=== PATIENT | female | born 1955 | race Caucasian/White ===

== ENCOUNTER 2017-11-24 15:13 | Observation (INO) ==
[2017-11-24] MEDS ORDERED: GI Cocktail 40 ML EACH PO ONE (15:55)
--- NOTE | 2017-11-24 16:00 | Emergency Department Note ---
Disposition Clinical Impression: Abdominal pain, Elevated LFTs, Bilirubinemia Disposition: Admitted As Inpatient Condition: Fair Instructions: Abdominal Pain (ED) Reasons to Return/Additional Instructions: Please follow-up with your primary care provider for continuation of your care. Return to the emergency department if you develop any worsening of your condition or if you develop new concerning symptoms. Prescriptions: Sucralfate [Carafate] 1 gm PO QIDAC #10 tablet Referrals: Jw Cruz MD [Primary Care Provider] - Forms: ED Satisfaction Letter, Work/School Release Time of Disposition: 17:00 Abdominal Pain HPI - General Chief Complaint: ED Abdominal Pain Stated Complaint: Epigastric pain radiating to back x 4 days Time Seen by Provider: 11/24/17 15:21 Source: patient Mode of arrival: ambulatory Limitations: no limitations Nursing Notes Reviewed: Yes Vital Signs Reviewed: Yes - History of Present Illness HPI Narrative: 62-year-old female presents emergency Department with concerns of epigastric right upper quadrant abdominal pain. Patient states symptoms have been intermittent over the past year. She had a similar episode of severe pain one year ago which she states was diagnosed as biliary obstruction which required ERCP. The procedure was performed at [facility] and she has been following Dr. Duvall since that time. She was evaluated in the emergency department last night at [facility] with laboratory evaluation that was not significantly abnormal. She was given a GI cocktail and she return home. Patient states she had temporary improvement of her pain and she was able to sleep for several hours. However after waking she developed epigastric right upper quadrant pain, she states that anything she eats makes pain worse. Patient denies fever, chills, diarrhea, hematochezia, melena, recent trauma, changes in medications. Pain Scale: 10 - Related Data Home Medications Medication Instructions Recorded Confirmed BuPROPion [Wellbutrin] 150 mg PO DAILY 09/11/16 11/24/17 FLUoxetine HCl [PROzac] 10 mg PO DAILY 11/11/16 11/24/17 Zaleplon [Sonata] 10 mg PO HS 11/11/16 11/24/17 Lisinopril [Zestril] 20 mg PO DAILY 04/11/17 11/24/17 Aspirin [Lo-Dose Aspirin EC] 81 mg PO DAILY 07/20/17 11/24/17 Etodolac [Lodine] 400 mg PO BID 09/01/17 11/24/17 OxyCODONE/APAP 7.5/325 [Percocet 1 each PO BID PRN 09/01/17 11/24/17 7.5/325 MG] Ursodiol 300 mg PO BID 09/01/17 11/24/17 Hyoscyamine SL [Levsin SL] 0.125 mg SL Q4HR 11/24/17 11/24/17 Previous Rx's Medication Instructions Recorded Pantoprazole Sodium [Protonix] 1 tab PO DAILY #30 tablet. 09/01/17 Sucralfate [Carafate] 1 gm PO QIDAC #10 tablet 11/24/17 Allergies Allergy/AdvReac Type Severity Reaction Status Date / Time meperidine [From Demerol] Allergy Hives Verified 11/24/17 03:34 Sulfa (Sulfonamide Allergy Hives Verified 11/24/17 03:34 Antibiotics) All systems ED: reviewed and negative except as stated. Review of Systems: As Per HPI Abdominal Pain PMH - Past Medical History Medical history: Reports: arthritis, GERD, hypertension, other Female Surgical History: Reports: appendectomy, cholecystectomy, hysterectomy, other [employer] history: Reports: no [employer] history Psychiatric history: Reports: anxiety, depression - Social History Smoking status: Never smoker Alcohol use: Reports: none Drug use: Reports: none Physical Exam General: Alert and in no acute distress Skin: Warm, dry, intact Head: Normocephalic and atraumatic Neck: Supple, trachea midline and no tenderness Cardiovascular: RRR, no murmur, normal perfusion Respiratory: CTAB, no wheezing, cough, or respiratory distress Musculoskeletal: Normal strength, no tenderness, swelling or deformity GI: Soft, mild tenderness to palpation of the epigastric and right upper quadrant without evidence of rigidity, guarding, or rebound. Neuro: A&O to person, place, time and situation. No focal deficits noted on exam Psychiatric: cooperative and appropriate mood and affect. - General Limitations: no limitations General appearance: alert, in no apparent distress Course Vital Signs Temperature 97.9 F 11/24/17 15:16 Pulse Rate 80 11/24/17 15:16 Respiratory Rate 16 11/24/17 15:16 Blood Pressure 147/82 11/24/17 15:16 O2 Sat by Pulse Oximetry 98 11/24/17 15:16 Temperature 97.9 F 11/24/17 15:16 Pulse Rate 80 11/24/17 15:16 Respiratory Rate 16 11/24/17 15:16 Blood Pressure 147/82 11/24/17 15:16 O2 Sat by Pulse Oximetry 98 11/24/17 15:16 Oxygen Delivery Oxygen Delivery Room Air Abdominal Pain - MDM Narrative Medical decision making narrative: Patient will be given GI cocktail for control of pain. We will recheck the patient's abdominal labs. Abdomen is soft and without rigidity, she likely does not need a CT of the abdomen unless her labs returned significantly altered. - Medical Records Medical records reviewed: Yes I reviewed the patient's medical records. - Lab Data Lab results reviewed: Yes I reviewed the patient's lab results. Result diagrams: 11/24/17 15:51 11/24/17 15:51 Lab Results 11/24/17 11/24/17 11/24/17 Range/Units 15:51 15:51 15:51 WBC 10.2 (4.3-11.1) K/mcL RBC 4.08 (3.82-4.97) M/mcL Hgb 13.1 (11.5-15.4) g/dL Hct 38.1 (35.3-44.9) % MCV 93.4 (83.0-100.0) fL MCH 32.1 (28.0-33.3) pg MCHC 34.4 (31.6-35.5) g/dL RDW 12.4 (11.5-14.5) % Plt Count 283 (140-400) K/mcL MPV 10.3 (9.4-12.4) fL Immature Gran % 0.4 (0-4) % Seg Neutrophils % 85.0 % Lymphocytes % 6.7 % Monocytes % 5.6 % Eosinophils % 1.9 % Basophils % 0.4 % Neutrophils # 8.7 (1.6-8.9) K/mcL Lymphocytes # 0.7 (0.6-4.6) K/mcL Monocytes # 0.6 (0.0-1.3) K/mcL Eosinophils # 0.2 (0.0-0.6) K/mcL Basophils # 0.0 (0.0-0.2) K/mcL Sodium 138 (136-145) mEq/L Potassium 3.9 (3.5-5.1) mEq/L Chloride 104 (98-107) mEq/L Carbon Dioxide 27 (23-29) mEq/L BUN 24 H (8-23) mg/dL Creatinine 0.90 (0.60-1.20) mg/dL Est GFR ( Amer) > 60 (> 60) Est GFR (Non-Af Amer) > 60 (> 60) BUN/Creatinine Ratio 27 H (6-26) Glucose 115 H (70-105) mg/dL Calculated Osmolality 291 (280-300) Lactic Acid 1.2 (0.5-2.2) mmol/L Calcium 10.0 (8.6-10.3) mg/dL Total Bilirubin 1.8 H (0.3-1.0) mg/dL Direct Bilirubin 0.9 H (0.0-0.2) mg/dL Indirect Bilirubin 0.9 (0.0-1.2) mg/dL AST 141 H (13-39) Units/L ALT 103 H (7-52) Units/L Alkaline Phosphatase 142 H (34-104) Units/L Troponin I < 0.03 (< 0.04) ng/mL Serum Total Protein 6.9 (6.4-8.9) g/dL Albumin 4.1 (3.5-5.7) g/dL Globulin 2.8 (2.4-3.5) g/dL Albumin/Globulin Ratio 1.5 (1.1-2.2) Lipase 46 (11-82) Units/L - Radiology Data Radiology results reviewed: Yes I reviewed the patient's radiology results. - EKG Data EKG attestation: Yes I reviewed and interpreted this EKG. EKG results narrative: ECG - interpreted by ED physician. Rate normal sinus rhythm with rate of 69 without evidence of STEMI or other dysrhythmia.
[2017-11-24 16:20] LABS: Basophils % 0.4 %; Eosinophils # 0.2 K/mcL (0.0-0.6); Eosinophils % 1.9 %; Hematocrit 38.1 % (35.3-44.9); Hemoglobin 13.1 g/dL (11.5-15.4); Immature Granulocytes % 0.4 % (0-4); Lymphocytes # 0.7 K/mcL (0.6-4.6); Lymphocytes % 6.7 %; Mean Corpuscular HGB Conc 34.4 g/dL (31.6-35.5); Mean Corpuscular Hemoglobin 32.1 pg (28.0-33.3); Mean Corpuscular Volume 93.4 fL (83.0-100.0); Mean Platelet Volume 10.3 fL (9.4-12.4); Monocytes # 0.6 K/mcL (0.0-1.3); Monocytes % 5.6 %; Neutrophils # 8.7 K/mcL (1.6-8.9); Platelet Count 283 K/mcL (140-400); Red Blood Count 4.08 M/mcL (3.82-4.97); Red Cell Distribution Width 12.4 % (11.5-14.5)
[2017-11-24 16:29] LABS: Alanine Aminotransferase 103 Units/L (7-52); Albumin 4.1 g/dL (3.5-5.7); Albumin/Globulin Ratio 1.5 (1.1-2.2); Alkaline Phosphatase 142 Units/L (34-104); Aspartate Amino Transferase 141 Units/L (13-39); BUN/Creatinine Ratio 27 (6-26); Bilirubin,Direct 0.9 mg/dL (0.0-0.2); Bilirubin,Indirect 0.9 mg/dL (0.0-1.2); Bilirubin,Total 1.8 mg/dL (0.3-1.0); Blood Urea Nitrogen 24 mg/dL (8-23); Carbon Dioxide 27 mEq/L (23-29); Chloride 104 mEq/L (98-107); Globulin 2.8 g/dL (2.4-3.5); Glucose 115 mg/dL (70-105); Lipase 46 Units/L (11-82); Osmolality,Calculated 291 (280-300); Potassium 3.9 mEq/L (3.5-5.1); Sodium 138 mEq/L (136-145); Total Protein 6.9 g/dL (6.4-8.9); Troponin I < 0.03 ng/mL (< 0.04); eGFR For Non-African Americans > 60 (> 60)
[2017-11-24 17:13] LABS: Bilirubin,Urine Large (Negative); Blood,Urine Negative (Negative); Clarity,Urine Cloudy (Clear); Color,Urine Yellow (Yellow); Glucose,Urine (UA) Normal (Normal); Ketones,Urine Negative (Negative); Leukocyte Esterase,Urine Trace (Negative); Nitrite,Urine Negative (Negative); Protein,Urine Negative (Neg-Trace); Specific Gravity,Urine 1.007 (1.010-1.025); Urobilinogen,Urine Normal (Normal)
[2017-11-24 17:16] LABS: Bacteria,Urine None Seen per hpf (None-Few); Hyaline Casts,Urine None Seen per lpf (None-Few); RBC,Urine 0-3 per hpf (0-3); Squamous Epithelial Cell,Urine Few per lpf (None-Few); WBC,Urine 0-3 per hpf (0-3)
[2017-11-24] MEDS ORDERED: *HR* FentaNYL (PF) 100 MCG/2 ML VIAL IVP ONE (17:18)
[2017-11-24] MEDS ORDERED: *HR* Promethazine 25 MG/ML VIAL IVP ONE (17:19)
[2017-11-24] MEDS ORDERED: Naloxone 0.4 MG/ML INJ IVP PRN (17:50)
[2017-11-24] MEDS ORDERED: *HR* Promethazine 25 MG/ML VIAL IVP PRN (17:50)
[2017-11-24] MEDS ORDERED: OXYCODONE Oral CONC 10 MG/0.5 ML ORAL.SYG SL PRN (17:50)
--- NOTE | 2017-11-24 18:09 | Internal Med History&Physical ---
Date of Encounter: 11/24/17 Time of Encounter: 17:55 Internal Medicine - H&P: HPI Chief complaint: abd pain Admitted From: Emergency Dept Plans for Post Hospital Care: Home History of present illness: Ms. Domínguez is a 62 year old female past medical history of GERD hypertension cholecystectomy. Patient has a history of recurrent epigastric pain. On Wednesday she began to experience right upper quadrant pain which she describes as sharp since she does have a history of chronic abdominal pain she felt it would resolve within a few hours however the pain continued. She there were no relieving factors and the pain was worse when she would eat. She denied any fevers chills diarrhea nausea or vomiting. The pain continued over the next few days she did go to the emergency department lab work was evaluated in was not significantly abnormal she was given a GI cocktail and she returned home. She did have some temporary improvement of her pain except for several hours however after waking she developed epigastric right upper quadrant pain and presented to the ER with the above complaints. Upon reviewing the records it appears the patient was recently seen by GI and [facility] as well as oncology for abnormal LFTs. She did undergo a colonoscopy which was within normal limits. Lab work completed in the emergency department elevated AST ALT. she is afebrile with white count. Abdomen is tender to palpation however soft without rigidity. She has been admitted for further workup and evaluation. GI has been consulted per ER physician and patient is scheduled for MRCP in a.m. She is hemodynamically stable at this time. I did review this case with who agrees with plan.. Past Med Surg Social Fam HX - Past Medical History Medical history: arthritis, GERD, hypertension, other Additional medical history: GALL STONES Psychiatric history: anxiety, depression - Past Surgical History Surgical History: appendectomy, cholecystectomy Additional surgical history: ERCP to open Bile duct x 2, PARTIAL HYSTERECTOMY - Social History Smoking Status: Never smoker Smokeless Tobacco Status: No Alcohol use: none Drug use: none Internal Medicine - H&P: Meds BuPROPion [Wellbutrin] 150 mg PO DAILY 09/11/16 [History] FLUoxetine HCl [PROzac] 10 mg PO DAILY 11/11/16 [History] Zaleplon [Sonata] 10 mg PO HS 11/11/16 [History] Lisinopril [Zestril] 20 mg PO DAILY 04/11/17 [History] Aspirin [Lo-Dose Aspirin EC] 81 mg PO DAILY 07/20/17 [History] Etodolac [Lodine] 400 mg PO BID 09/01/17 [History] OxyCODONE/APAP 7.5/325 [Percocet 7.5/325 MG] 1 each PO BID PRN 09/01/17 [History ] Pantoprazole Sodium [Protonix] 1 tab PO DAILY #30 tablet. 09/01/17 [Rx] Ursodiol 300 mg PO BID 09/01/17 [History] Hyoscyamine SL [Levsin SL] 0.125 mg SL Q4HR 11/24/17 [History] Sucralfate [Carafate] 1 gm PO QIDAC #10 tablet 11/24/17 [Rx] 3 Allergy/AdvReac Type Severity Reaction Status Date / Time meperidine [From Demerol] Allergy Hives Verified 11/24/17 03:34 Sulfa (Sulfonamide Allergy Hives Verified 11/24/17 03:34 Antibiotics) All Systems PM: A 10-system review of systems was performed and is negative for pertinent findings except as documented above in the HPI. - Constitutional Constitutional: no chills, no fever(s), no night sweats - EENT Eyes: no change in vision, no discharge, no pain, no photophobia Ears: no ear discharge, no ear pain, no tinnitus Nose, mouth and throat: no dysphagia, no nasal discharge, no neck pain, no sore throat - Cardiovascular Cardiovascular ROS IM: no chest pain, no diaphoresis, no dyspnea, no lightheadedness, no palpitations, no syncope - Respiratory Respiratory: no cough, no dyspnea, no wheezing, no excessive phlegm production - Gastrointestinal Gastrointestinal: abdominal pain, constipation - Genitourinary Genitourinary: no change in urinary stream, no dysuria, no flank pain, no hematuria - Musculoskeletal Musculoskeletal ROS IM: no numbness, no tingling - Integumentary Integumentary IM: no rash, no unusual bruising - Neurological Neurological ROS: no confusion, no convulsions, no focal weakness, no numbness, no tingling, no tremor(s) - Hematologic/Lymphatic Hematologic/Lymphatic: no easy bruising - Constitutional Vitals: Temp Pulse Resp BP Pulse Ox 97.9 F 80 16 147/82 98 11/24/17 15:16 11/24/17 15:16 11/24/17 15:16 11/24/17 15:16 11/24/17 15:16 General appearance: Present: A&O X 3 Exam: See above - Head Head exam: Present: atraumatic, normocephalic - Eye Eye exam: Present: PERRL, conjuntiva pink, sclera anicteric Pupils: Present: PERRL - Neck Neck exam general surgery: Present: supple, trachea midline. Absent: lymphadenopathy - Respiratory Respiratory exam: Present: CTAB. Absent: accessory muscle use, rales, rhonchi, wheezes - Cardiovascular Cardiovascular exam: Present: RRR, +S1, +S2. Absent: diastolic murmur, gallop, rubs, systolic murmur - GI/Abdominal GI/Abdominal exam: Present: normal bowel sounds, soft, no peritoneal signs. Absent: distended, tenderness - Extremities Exam Extremities exam: Present: warm, radial pulses palpable and symmetrical. Absent : calf tenderness, cyanotic, pedal edema - Neurological Exam Neurological exam: Present: CN II-XII intact, oriented X3, no focal deficits. Absent: pronater drift, facial droop, speech deficit - Skin Skin exam: Present: dry, intact Internal Med - H&P Results - Labs CBC & Chem 7: 11/24/17 15:51 11/24/17 15:51 - Assessment and plan (1) Abdominal pain Current Visit: Yes Status: Acute Assessment and plan: 1 patient has a long history of epigastric pain which usually last 30 minutes to 2 every 3 hours once a month. She has had her gallbladder removed several years ago and has had multiple ERCPs 1 performed at the [facility] and most recently a [facility] a year and a half ago at [place]. She was seen by Dr. Bolton in August she underwent a colonoscopy which was normal. She presented today after experiencing approximately 3 days of right upper quadrant pain. LFTs are elevated. -GI has been consulted and patient will be nothing by mouth overnight MRCP in a.m. IV fluids overnight Pain medication Phenergan as needed for nausea Qualifiers: Abdominal location: right upper quadrant Qualified Code(s): R10.11 - Right upper quadrant pain (2) Elevated LFTs Current Visit: Yes Status: Acute Assessment and plan: 1 this appears to be chronic-AST today is 141 -it was 61 earlier in the morning.t 103 earlier in the morning it was 49-we will keep patient nothing by mouth for now GI has been consulted MRCP in a.m. - Time Spent With Patient Total time spent is greater than 50% in coordination of care (as documented) at patient's floor/unit and/or counseling patient:
[2017-11-24] MEDS: 0.9 % Sodium Chloride 1,000 ML IVC SCH (20:37)
[2017-11-25] MEDS: OXYCODONE Oral CONC 10 MG/0.5 ML ORAL.SYG SL PRN ×2 (03:20→17:47)
[2017-11-25 05:20] LABS: Basophils % 0.8 %; Eosinophils # 0.3 K/mcL (0.0-0.6); Eosinophils % 6.7 %; Hematocrit 36.4 % (35.3-44.9); Hemoglobin 12.4 g/dL (11.5-15.4); Immature Granulocytes % 0.2 % (0-4); Lymphocytes # 1.2 K/mcL (0.6-4.6); Lymphocytes % 23.5 %; Mean Corpuscular HGB Conc 34.1 g/dL (31.6-35.5); Mean Corpuscular Hemoglobin 31.8 pg (28.0-33.3); Mean Corpuscular Volume 93.3 fL (83.0-100.0); Mean Platelet Volume 10.4 fL (9.4-12.4); Monocytes # 0.6 K/mcL (0.0-1.3); Monocytes % 11.1 %; Neutrophils # 2.9 K/mcL (1.6-8.9); Platelet Count 280 K/mcL (140-400); Red Cell Distribution Width 12.4 % (11.5-14.5); Segmented Neutrophils % 57.7 %
[2017-11-25 05:43] LABS: BUN/Creatinine Ratio 23 (6-26); Blood Urea Nitrogen 17 mg/dL (8-23); Calcium 9.6 mg/dL (8.6-10.3); Carbon Dioxide 25 mEq/L (23-29); Chloride 107 mEq/L (98-107); Glucose 95 mg/dL (70-105); Osmolality,Calculated 289 (280-300); Potassium 3.9 mEq/L (3.5-5.1); Sodium 139 mEq/L (136-145); eGFR For Non-African Americans > 60 (> 60)
--- NOTE | 2017-11-25 09:14 | Internal Med Progress Note ---
Hospitalist Progress Note - Encounter Date of Encounter: 11/26/17 Time of Encounter: 09:12 - Subjective Interval History: Patient seen and examined at bedside. Pain currently controlled Did review results of MRCP with patient - awaiting GI recommendations - Exam Vitals: Temp Pulse Resp BP Pulse Ox 98.4 F 69 16 112/73 96 11/25/17 07:18 11/25/17 07:18 11/25/17 07:18 11/25/17 07:18 11/25/17 07:18 Exam: see above - Assessment and Plan (1) Abdominal pain Current Visit: Yes Status: Acute Assessment and Plan: 1 patient has a long history of epigastric pain which usually last 30 minutes to 2 every 3 hours once a month. She has had her gallbladder removed several years ago and has had multiple ERCPs 1 performed at the [facility] and most recently a [facility] a year and a half ago at [place]. She was seen by Dr. Bolton in August she underwent a colonoscopy which was normal. She presented today after experiencing approximately 3 days of right upper quadrant pain. LFTs are elevated. -GI has been consulted awaiting recommendations MRCP - Moderate intra and extrahepatic biliary ductal dilation due to a 10 mm choledocholith in the distal common duct. Consider ERCP for further evaluation. IV fluids o Pain medication Phenergan as needed for nausea (2) Elevated LFTs Current Visit: Yes Status: Acute Assessment and Plan: 1 this appears to be chronic-AST today is 141 -it was 61 earlier in the morning.t 103 earlier in the morning it was 49-we will keep patient nothing by mouth for now GI has been consulted MRCP in a.m. - Time Spent with Patient Total time spent is greater than 50% in coordination of care (as documented) at patient's floor/unit and/or counseling patient: Internal Medicine: Result - Labs CBC & Chem 7: 11/26/17 01:31 11/26/17 01:31 Labs: Short CBC 11/25/17 Range/Units 04:31 WBC 5.1 (4.3-11.1) K/mcL Hgb 12.4 (11.5-15.4) g/dL Hct 36.4 (35.3-44.9) % Plt Count 280 (140-400) K/mcL Neutrophils # 2.9 (1.6-8.9) K/mcL BMP 11/25/17 04:31 Sodium 139 Potassium 3.9 Chloride 107 Carbon Dioxide 25 BUN 17 Creatinine 0.75 Glucose 95 Calcium 9.6 Consult Discharge Plan - Plan Referrals: Jw Cruz MD [Primary Care Provider] - (1) Abdominal pain Qualifiers: Abdominal location: right upper quadrant Qualified Code(s): R10.11 - Right upper quadrant pain
[2017-11-25] MEDS: 0.9 % Sodium Chloride 1,000 ML IVC SCH (10:35)
--- NOTE | 2017-11-25 11:36 | Gastroenterology Consult Note ---
<MaresMaicol Maryam - Last Filed: 11/25/17 11:34> Date of Encounter: 11/25/17 Time of Encounter: 10:20 - Assessment and plan (1) Choledocholithiasis Current Visit: Yes Status: Acute Assessment and plan: MRCP shows moderate intra and extrahepatic biliary ductal dilation due to a 10 mm choledocholith in the distal common duct. Plan for ERCP today. Keep patient NPO. (2) Abdominal pain Current Visit: Yes Status: Acute Assessment and plan: She has long standing history of this pain, and has had multiple ERCPs in the past. MRCP shows moderate intra and extrahepatic biliary ductal dilation due to a 10 mm choledocholith in the distal common duct. Plan for ERCP today. Qualifiers: Abdominal location: right upper quadrant Qualified Code(s): R10.11 - Right upper quadrant pain (3) Elevated LFTs Current Visit: Yes Status: Acute Assessment and plan: Secondary to choledocholitisasis. Plan for ERCP today. Continue to monitor hepatic panel daily. - Time Spent With Patient Total time spent is greater than 50% in coordination of care (as documented) at patient's floor/unit and/or counseling patient: GI History of Present Illness - Data of Consult Patient: known to practice within the last 3 years Consult date: 11/25/17 Requesting Physician: Clotilde Donato - Consult Narrative Reason for consult: Abdominal pain, elevated LFTs History of present illness: Ms. Domínguez is a 62 year old female with PMHx of arthritis, GERD, HTN, s/p cholecystectomy who presented with abdominal pain. On Wednesday she began to experience right upper quadrant pain which she describes as sharp since she does have a history of chronic abdominal pain she felt it would resolve within a few hours however the pain continued. Pain was worse when she would eat. She went to an ED and lab work was evaluated but was not significantly abnormal, she was given a GI cocktail and returned home. She has long-standing history of this pain and has been to the [facility] and also [facility] in [place] and had multiple ERCPs completed, last 3 years ago. MRCP shows moderate intra and extrahepatic biliary ductal dilation due to a 10 mm choledocholith in the distal common duct. She denies fever, chills, chest pain, shortness of breath, nausea, vomiting, constipation, diarrhea, melena, or hematochezia. Procedures: Colonoscopy 10/15/2017 Dr. Duvall: Normal. Colonoscopy 10/03/2010 Dr. Domingo: Normal. EGD 10/03/2010 Dr. Domingo: Non-bleeding erosive gastropathy. NSAIDs: ASA Anticoagulation: None Past Med Surg Social Fam HX - Past Medical History Medical history: arthritis, GERD, hypertension, other Additional medical history: GALL STONES Psychiatric history: anxiety, depression - Past Surgical History Surgical History: appendectomy, cholecystectomy Additional surgical history: ERCP to open Bile duct x 2, PARTIAL HYSTERECTOMY - Social History Smoking Status: Never smoker Smokeless Tobacco Status: No Alcohol use: none Drug use: none - Gastrointestinal Gastrointestinal: Present: as per HPI - Constitutional Constitutional: as per HPI - EENT Eyes: as per HPI Ears: Present: as per HPI Nose, mouth and throat: Present: as per HPI - Cardiovascular Cardiovascular ROS: Present: as per HPI - Respiratory Respiratory IM: Present: as per HPI - Genitourinary Genitourinary: Absent: change in color, Urinary frequency - Neurological ROS Neurological GI: Present: as per HPI - Hematologic/Lymphatic Hematologic/Lymphatic pediatric: Present: as per HPI - Musculoskeletal Musculoskeletal ROS GI: Present: as per HPI - Integumentary Integumentary GI: Present: as per HPI - Psychiatric ROS Psychiatric GI: Present: as per HPI - Endocrine Endocrine IM: Present: as per HPI - Constitutional Vitals: Temp Pulse Resp BP Pulse Ox 98.6 F 69 18 105/64 94 11/25/17 11:13 11/25/17 11:13 11/25/17 11:13 11/25/17 11:13 11/25/17 11:13 General appearance: Present: cooperative, A&O X 3, no acute distress, answers questions appropriately - Head Head exam: Present: atraumatic, normocephalic - Eye Eye exam: Present: normal appearance, sclera anicteric - ENT ENT exam: Present: mucous membranes dry - Neck Neck exam general surgery: Present: normal inspection, trachea midline - Respiratory Respiratory exam: Present: CTAB. Absent: rales, rhonchi, wheezes - Cardiovascular Cardiovascular exam: Present: RRR, +S1, +S2 - GI/Abdominal GI/Abdominal exam: Present: soft, tenderness (epigastric and RUQ), no peritoneal signs. Absent: distended, firm, guarding - Rectal Rectal exam: Present: deferred - Extremities Exam Extremities exam: Present: warm - Neurological Exam Neurological exam: Present: no focal deficits - Psychiatric Psychiatric exam: Present: normal affect, normal mood - Skin Skin exam: Present: dry, intact, normal color, warm Results - Labs CBC & Chem 7: 11/25/17 04:31 11/25/17 04:31 Labs: Last Result Calcium 9.6 mg/dL (8.6-10.3) 11/25/17 04:31 Troponin I < 0.03 ng/mL (< 0.04) 11/24/17 15:51 Entire Visit Hgb 12.4 g/dL (11.5-15.4) 11/25/17 04:31 Hct 36.4 % (35.3-44.9) 11/25/17 04:31 Total Bilirubin 1.8 mg/dL (0.3-1.0) H 11/24/17 15:51 AST 141 Units/L (13-39) H 11/24/17 15:51 ALT 103 Units/L (7-52) H 11/24/17 15:51 Lipase 46 Units/L (11-82) 11/24/17 15:51 Consult Discharge Plan - Plan Referrals: Jw Cruz MD [Primary Care Provider] - <Nahun Duvall - Last Filed: 11/25/17 13:54> Date of Encounter: 11/25/17 Time of Encounter: 13:00 - Time Spent With Patient Total time spent is greater than 50% in coordination of care (as documented) at patient's floor/unit and/or counseling patient: GI History of Present Illness - Data of Consult Requesting Physician: Clotilde Donato - Consult Narrative History of present illness: Ms. Domínguez is a 62 year old female - Constitutional Vitals: Temp Pulse Resp BP Pulse Ox 98.6 F 72 16 121/69 95 11/25/17 11:13 11/25/17 12:40 11/25/17 12:40 11/25/17 12:40 11/25/17 12:40 Results - Labs CBC & Chem 7: 11/25/17 04:31 11/25/17 04:31 Labs: Last Result Calcium 9.6 mg/dL (8.6-10.3) 11/25/17 04:31 Troponin I < 0.03 ng/mL (< 0.04) 11/24/17 15:51 Entire Visit Hgb 12.4 g/dL (11.5-15.4) 11/25/17 04:31 Hct 36.4 % (35.3-44.9) 11/25/17 04:31 Total Bilirubin 1.8 mg/dL (0.3-1.0) H 11/24/17 15:51 AST 141 Units/L (13-39) H 11/24/17 15:51 ALT 103 Units/L (7-52) H 11/24/17 15:51 Lipase 46 Units/L (11-82) 11/24/17 15:51 - Attending Attestation I have personally performed a face to face evaluation on this patient. I have reviewed and agree with the care plan. History and Exam by me shows: Patient seen patient with the epigastric and lower central chest pain. Does has mildly elevated LFTs on examination has mild tenderness deep in the epigastric area. Assessment: Patient with CBD stone with the abnormal LFTs and abdominal pain. Recommendation: ERCP procedure including risks discussed with the patient
[2017-11-25] MEDS ORDERED: *HR* Succinylcholine 200 MG/10 ML VIAL IVP ONE (11:57)
[2017-11-25] MEDS ORDERED: Lidocaine -MPF 2% 2 ML VIAL ONE (11:57)
[2017-11-25] MEDS ORDERED: *HR* Propofol 200 MG/20 ML VIAL IVP ONE (11:58)
[2017-11-25] MEDS ORDERED: Lidocaine -MPF 4% 5 ML AMPUL ONE (11:59)
--- NOTE | 2017-11-25 12:47 | Anesthesia Evaluation PreOp ---
Date of Encounter: 11/25/17 Time of Encounter: 12:40 - Past History Planned Operation: ERCP Cardiac History: HTN (on lisinipril, took today) Pulmonary History: Denies Any Significant HX [employer] History: Other (anxiety/depression) Other Medical History: GERD Anesthesia History: Past Anesthesia (Multiple prior anesthetics without complication.) Alcohol Use: none Drug use: none Medications and Allergies BuPROPion [Wellbutrin] 150 mg PO DAILY 09/11/16 [History] Zaleplon [Sonata] 10 mg PO HS 11/11/16 [History] Aspirin [Lo-Dose Aspirin EC] 81 mg PO DAILY 07/20/17 [History] Etodolac [Lodine] 400 mg PO BID 09/01/17 [History] OxyCODONE/APAP 7.5/325 [Percocet 7.5/325 MG] 1 each PO BID PRN 09/01/17 [History ] Pantoprazole Sodium [Protonix] 1 tab PO DAILY #30 tablet. 09/01/17 [Rx] Ursodiol 300 mg PO BID 09/01/17 [History] FLUoxetine HCl [Fluoxetine HCl] 40 mg PO DAILY 11/24/17 [History] Lisinopril/Hydrochlorothiazide [Zestoretic 20-12.5 mg Tablet] 1 tab PO DAILY 03/01 [History] Ropinirole HCl [Requip] 0.5 mg PO DAILY PRN 11/24/17 [History] Sucralfate [Carafate] 1 gm PO QIDAC #10 tablet 11/24/17 [Rx] Trazodone HCl 50 mg PO DAILY PRN 11/24/17 [History] 3 Allergy/AdvReac Type Severity Reaction Status Date / Time meperidine [From Demerol] Allergy Hives Verified 11/24/17 03:34 Sulfa (Sulfonamide Allergy Hives Verified 11/24/17 03:34 Antibiotics) - Meds/Allergy Pre-op Review Medications Reviewed: Yes Allergies Reviewed: Yes Beta Blockers on Current Med List: No Anesthesia Results - Labs 11/25/17 04:31 11/25/17 04:31 - Imaging EKG: report reviewed (sinus rhythm) Anesthesia Exam Selected Entries 11/25/17 11:13 11/25/17 12:40 Temperature 98.6 F Pulse Rate 72 Respiratory Rate 16 Blood Pressure 121/69 O2 Sat by Pulse Oximetry 95 Weight: 75 kg. NPO (# of Hours): over 8 hours - HEENT Pupil (Motor): Pupils equal Mallampati: II Teeth: Normal Oral Opening: Greater than 3 - Cardiac Rhythm: Regular Murmur: None - Pulmonary Breath Sounds: bilateral Clear Respiratory Effort: Symmetrical Anesthesia Assess/Plan ASA Score: 2 Modified Sohan Scale for Level of Consciousness: Cooperative, oriented, and tranquil Anesthetic Plan: General Monitoring Plan: Standard Monitors Recovery Plan: PACU (Discussed GA, risks. Agreed to proceed.)
[2017-11-25] MEDS ORDERED: *HR* Midazolam HCl 2 MG/2 ML VIAL ONE (12:54)
[2017-11-25] MEDS ORDERED: *HR* FentaNYL (PF) 100 MCG/2 ML VIAL ONE ×2 (12:54→13:08)
[2017-11-25] MEDS ORDERED: Ondansetron 4 MG/2 ML VIAL ONE (13:08)
[2017-11-25] MEDS ORDERED: Dexamethasone 4 MG/ML VIAL ONE (13:08)
[2017-11-25] MEDS ORDERED: Indomethacin 50 MG SUPP.RECT RC ONE (14:14)
[2017-11-25] MEDS ORDERED: *HR* OxyCODONE Immed Rel 5 MG TABLET PO PRN (14:20)
[2017-11-25] MEDS ORDERED: Ondansetron 4 MG/2 ML VIAL IVP ONE (14:20)
[2017-11-25] MEDS ORDERED: *HR* HYDROmorphone (PF) 1 MG/ML SYRINGE IVP PRN (14:20)
[2017-11-25] MEDS ORDERED: *HR* Promethazine 25 MG/ML VIAL IVP PRN (14:20)
--- NOTE | 2017-11-25 15:12 | Anesthesia Evaluation Post Op ---
Date of Encounter: 11/25/17 Time of Encounter: 15:11 - Vital Signs Vital Signs: Vital Signs/O2 Sat/Glucose, Most Recent Temp Pulse Resp BP Pulse Ox 97.8 F 74 16 142/74 96 11/25/17 14:44 11/25/17 15:04 11/25/17 15:04 11/25/17 15:04 11/25/17 15:04 Blood Glucose* 92 - Lungs Lungs: Clear Ascult./Percussion - Airway Airway: Non-obstructed - Cardiovascular Regular Rate - Mental Status Mental Status: Alert & Oriented, Answers Appropriately - Pain Pain Scale: 0 Pain Scale used: Numeric (1 - 10) - Nausea Vomiting Nausea Vomiting: Not Present - Hydration Hydration: Tolerates oral liquids - Discharge PostOp Status: Transfer Patient to floor
[2017-11-25] MEDS ORDERED: Ringers Solution, Lactated 1,000 ML ONE (15:13)
--- NOTE | 2017-11-25 15:52 | Electrocardiograph Report ---
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
[2017-11-26 01:57] LABS: Basophils % 0.3 %; Hemoglobin 11.9 g/dL (11.5-15.4); Immature Granulocytes % 0.3 % (0-4); Lymphocytes # 0.9 K/mcL (0.6-4.6); Lymphocytes % 15.7 %; Mean Corpuscular Hemoglobin 32.1 pg (28.0-33.3); Mean Corpuscular Volume 94.3 fL (83.0-100.0); Mean Platelet Volume 10.4 fL (9.4-12.4); Monocytes # 0.4 K/mcL (0.0-1.3); Monocytes % 6.6 %; Neutrophils # 4.5 K/mcL (1.6-8.9); Platelet Count 271 K/mcL (140-400); Red Blood Count 3.71 M/mcL (3.82-4.97); Red Cell Distribution Width 12.2 % (11.5-14.5); Segmented Neutrophils % 77.1 %
[2017-11-26 02:06] LABS: BUN/Creatinine Ratio 22 (6-26); Blood Urea Nitrogen 15 mg/dL (8-23); Calcium 9.6 mg/dL (8.6-10.3); Carbon Dioxide 25 mEq/L (23-29); Chloride 105 mEq/L (98-107); Glucose 101 mg/dL (70-105); Osmolality,Calculated 289 (280-300); Potassium 4.2 mEq/L (3.5-5.1); Sodium 139 mEq/L (136-145); eGFR For Non-African Americans > 60 (> 60)
[2017-11-26 15:22] VITALS: BP 115/63
--- NOTE | 2017-11-26 15:55 | Discharge Summary ---
- NOTES TO OUTPATIENT PROVIDER Notes to Outpatient Provider: Follow up with GI as outpatient - underwent ERCP Date of Encounter: 11/26/17 Time of Encounter: 15:53 - Discharge Diagnosis (1) Abdominal pain Priority: Primary Status: Acute Qualifiers: Abdominal location: right upper quadrant Qualified Code(s): R10.11 - Right upper quadrant pain (2) Elevated LFTs Priority: Secondary Status: Acute Hospital course: Ms. Domínguez is a 62 year old female past medical history of GERD hypertension cholecystectomy Patient has a history of recurrent epigastric pain. On Wednesday she began to experience right upper quadrant pain which she describes as sharp since she does have a history of chronic abdominal pain she felt it would resolve within a few hours however the pain continued. She there were no relieving factors and the pain was worse when she would eat. She denied any fevers chills diarrhea nausea or vomiting. The pain continued over the next few days she did go to the emergency department lab work was evaluated in was not significantly abnormal she was given a GI cocktail and she returned home. She did have some temporary improvement of her pain except for several hours however after waking she developed epigastric right upper quadrant pain and presented to the ER with the above complaints. Upon reviewing the records it appears the patient was recently seen by GI and [facility] as well as oncology for abnormal LFTs. She did undergo a colonoscopy which was within normal limits. Lab work completed in the emergency department elevated AST ALT. GI was consult and patient underwent MRCP did show moderate intra-and extrahepatic biliary ductal dilatation due to a 10 mm choledocholith in the distal common bile duct . She underwent ERCP tolerated procedure well. She was able to tolerate clear liquids and was advanced to regular diet. No pain or discomfort voiced. Vital signs are normal no bleeding noted. She is hemodynamically stable and she is ready for discharge. She will follow up with primary care provider as well as GI as outpatient patient verbalized understanding Discharge discussed with: patient - Time Spent with Patient Total time spent providing and/or coordinating discharge services: - Discharge Medications Home Medications: BuPROPion [Wellbutrin] 150 mg PO DAILY 09/11/16 [History] Zaleplon [Sonata] 10 mg PO HS 11/11/16 [History] Aspirin [Lo-Dose Aspirin EC] 81 mg PO DAILY 07/20/17 [History] Etodolac [Lodine] 400 mg PO BID 09/01/17 [History] OxyCODONE/APAP 7.5/325 [Percocet 7.5/325 MG] 1 each PO BID PRN 09/01/17 [History ] Pantoprazole Sodium [Protonix] 1 tab PO DAILY #30 tablet. 09/01/17 [Rx] Ursodiol 300 mg PO BID 09/01/17 [History] FLUoxetine HCl [Fluoxetine HCl] 40 mg PO DAILY 11/24/17 [History] Lisinopril/Hydrochlorothiazide [Zestoretic 20-12.5 mg Tablet] 1 tab PO DAILY 03/01 [History] Ropinirole HCl [Requip] 0.5 mg PO DAILY PRN 11/24/17 [History] Sucralfate [Carafate] 1 gm PO QIDAC #10 tablet 11/24/17 [Rx] Trazodone HCl 50 mg PO DAILY PRN 11/24/17 [History] Allergies/Adverse Reactions: 3 Allergy/AdvReac Type Severity Reaction Status Date / Time meperidine [From Demerol] Allergy Hives Verified 11/24/17 03:34 Sulfa (Sulfonamide Allergy Hives Verified 11/24/17 03:34 Antibiotics) Date of admission: 11/24/17 17:27 Primary care physician: Jw Cruz MD Consults: 11/24/17 17:54 Consult to Gastroenterology [CONS] Stat Consulting Provider: Gastroenterology Danielle Reason for Consult: abd pain, elevated LFTs Call Completed: Yes 11/24/17 20:06 Consult to Nutrition [CONS] Routine Comment: Consulting Provider: NUTRITION Reason for Dietary Consult: MST Score Discharging clinician: Sharon Guzman Anticipated date of discharge: 11/26/17 - Constitutional Vitals: Temp Pulse Resp BP Pulse Ox 98.2 F 75 14 115/63 94 11/26/17 15:20 11/26/17 15:20 11/26/17 15:20 11/26/17 15:20 11/26/17 15:20 General appearance: Present: A&O X 3 Exam: see above - Head Head exam: Present: atraumatic, normocephalic - Eye Eye exam: Present: PERRL, conjuntiva pink, sclera anicteric Pupils: Present: PERRL - Neck Neck exam general surgery: Present: supple, trachea midline. Absent: lymphadenopathy - Respiratory Respiratory exam: Present: CTAB. Absent: accessory muscle use, rales, rhonchi, wheezes - Cardiovascular Cardiovascular exam: Present: RRR, +S1, +S2. Absent: diastolic murmur, gallop, rubs, systolic murmur - GI/Abdominal GI/Abdominal exam: Present: normal bowel sounds, soft, no peritoneal signs. Absent: distended, tenderness - Extremities Exam Extremities exam: Present: warm, radial pulses palpable and symmetrical. Absent : calf tenderness, cyanotic, pedal edema - Neurological Exam Neurological exam: Present: CN II-XII intact, oriented X3, no focal deficits. Absent: pronater drift, facial droop, speech deficit - Skin Skin exam: Present: dry, intact - Patient Status Disposition: Home, Self-Care Condition: Fair Functional capacity at discharge: independent ambulation Overall status at discharge: patient is back to baseline - Discharge Instructions Follow Up With: Jw Cruz MD [Primary Care Provider] - - Diet and Activity Activity: increase activity as tolerated Diet: advance to your usual diet
--- NOTE | 2017-11-27 08:48 | Electrocardiograph Report ---
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
== END 2017-11-26 17:31 | disposition home or self-care (01) ==
LOC: 3ANU 15:13 → EMEROOARM 15:13 → 3ANU 17:34
PROVIDERS: ADMIT Student in an Organized Health Care Education/Training Program; ATTEND Student in an Organized Health Care Education/Training Program